=== PATIENT | female | born 1990 | race Caucasian/White ===

== ENCOUNTER 2021-03-01 05:14 | Emergency (ER) | payer BC ==
[2021-03-01] MEDS ORDERED: Mag-Al Plus 1200 MG/1200 MG/120 MG/30 ML UDCUP ONE (06:36)
[2021-03-01] MEDS ORDERED: Lidocaine Viscous Sol 2% 15 ml UD Cup ONE (06:37)
[2021-03-01 06:47] LABS: #Eosinphils 0.5 10x3/uL (0.0-0.5); #Neutrophils 10.8 10x3/uL (1.5-8.4); %Basophils 0.3 % (0.0-2.0); %Eosinophils 3.4 % (0.0-6.0); %Lymphocytes 8.1 % (18.0-47.0); %Monocytes 7.2 % (0.0-10.0); %Neutrophils 80.5 % (40.0-75.0); Hemoglobin 14.1 g/dL (12.0-15.5); Mean Corpuscular HGB CONC 33.3 g/dL (32.0-36.0); Mean Corpuscular Hemoglobin 29.8 pg (27.0-33.0); Mean Corpuscular Volume 89.4 fl (81.6-98.3); Mean Platelet Volume 11.3 fl (7.4-10.4); Platelet Count 199 10x3/uL (150-450); RBC Distribution Width 11.9 % (11.5-14.5); Red Blood Cell (RBC) Count 4.73 10x6/uL (3.90-5.03); White Blood Cell (WBC) Count 13.4 10x3/uL (3.5-10.5)
[2021-03-01 07:11] LABS: ALT (SGPT) 17 U/L (8-55); AST (SGOT) 18 U/L (5-34); Albumin 3.8 g/dL (3.5-5.0); Alkaline Phosphatase 77 U/L (40-110); Anion Gap 12 mmol/L (10-20); BUN (Urea Nitrogen) 11 mg/dL (7.0-18.7); Bilirubin, Total 0.5 mg/dL (0.2-1.2); Calc. Creatinine Clearance 0 mL/min (70-130); Calcium 9.6 mg/dL (7.8-10.44); Carbon Dioxide 25 mmol/L (22-29); Chloride 107 mmol/L (98-107); Globulin 2.8 g/dL (2.4-3.5); Glucose 94 mg/dL (70-105); Lipase 27 U/L (8-78); Potassium 3.4 mmol/L (3.5-5.1); Protein, Total 6.6 g/dL (6.0-8.3); Sodium 141 mmol/L (136-145)
== END 2021-03-01 10:20 | disposition home or self-care (01) ==
LOC: CSHERS 05:14
DX: K21.00 Gastro-esophageal reflux disease with esophagitis, without bleeding (principal); R91.8 Other nonspecific abnormal finding of lung field; Z86.16 Personal history of COVID-19
CPT/HCPCS: 71045; 80053; 83690; 84484; 85025; 85379; 93005

== ENCOUNTER 2021-07-31 14:24 | Outpatient (CLI) | payer BC | END 2021-07-31 14:25 | disposition home or self-care (01) | LOC: CSHMRI 14:24 | PROVIDERS: ATTEND Family Medicine | DX: G44.52 New daily persistent headache (NDPH) (principal); J32.9 Chronic sinusitis, unspecified | CPT/HCPCS: 70551 ==

== ENCOUNTER 2022-09-10 03:16 | Inpatient (IN) | payer BC ==
[2022-09-10] MEDS ORDERED: Methylergonovine 0.2 MG/ML VIAL IM PRN (04:30)
[2022-09-10] MEDS ORDERED: Carboprost 250 MCG/ML AMP IM PRN (04:30)
[2022-09-10] MEDS ORDERED: HYDROcodone/Acetaminophen 5/325 mg Tablet PO PRN ×3 (04:30→15:03)
[2022-09-10] MEDS ORDERED: Lidocaine 1% (PF) 30 ML VIAL SC PRN (04:30)
[2022-09-10] MEDS ORDERED: NS w/ Oxytocin 30 units 500 ML IV SCH ×2 (04:30→12:00)
[2022-09-10] MEDS ORDERED: NS w/ Oxytocin 30 units 500 ML IVPB SCH (04:30)
[2022-09-10] MEDS ORDERED: Ibuprofen 800 MG TAB PO PRN (04:30)
[2022-09-10] MEDS ORDERED: Misoprostol 200 MCG TAB RC PRN (04:30)
[2022-09-10] MEDS ORDERED: Diphenoxylate HCl/Atropine Tablet PO PRN (04:30)
[2022-09-10] MEDS ORDERED: Acetaminophen 500 MG TAB PO PRN (04:45)
[2022-09-10] MEDS ORDERED: Butorphanol Tartrate 1 MG/ML VIAL SLOW IVP PRN (04:45)
[2022-09-10] MEDS ORDERED: Zolpidem Tartrate 5 MG TAB PO PRN (04:45)
[2022-09-10] MEDS ORDERED: Promethazine HCl 25 MG/ML VIAL IM PRN ×2 (04:45→06:29)
[2022-09-10] MEDS ORDERED: hydrALAZINE 20 MG/ML VIAL SLOW IVP PRN ×2 (04:45→11:59)
[2022-09-10] MEDS ORDERED: Ondansetron PF 4 MG/2 ML Vial IVP PRN ×3 (04:45→11:59)
[2022-09-10 05:24] VITALS: BMI 26.6
[2022-09-10] MEDS ORDERED: Fentanyl 2 mcg/Bup 0.1% Cadd 100 ML ONE (05:30)
[2022-09-10 05:33] LABS: Hemoglobin 11.8 g/dL (12.0-15.5); Mean Corpuscular HGB CONC 34.1 g/dL (32.0-36.0); Mean Corpuscular Hemoglobin 28.9 pg (27.0-33.0); Mean Corpuscular Volume 84.6 fl (81.6-98.3); Mean Platelet Volume 11.6 fl (7.4-10.4); Platelet Count 247 10x3/uL (150-450); RBC Distribution Width 12.2 % (11.5-14.5); Red Blood Cell (RBC) Count 4.09 10x6/uL (3.90-5.03); White Blood Cell (WBC) Count 20.5 10x3/uL (3.5-10.5)
[2022-09-10 06:00] LABS: HBSAg Index 0.16 S/CO (0-0.99); Hep B Surf Ag Non-Reactive S/CO (NonReactive)
[2022-09-10 06:01] LABS: Syphilis Antibody Nonreactive (Nonreactive); Syphilis Antibody Index 0.04 S/CO (<1.00 Non-Reactive)
[2022-09-10] MEDS ORDERED: Acetaminophen 325 MG TAB PO PRN (06:29)
[2022-09-10] MEDS ORDERED: diphenhydrAMINE 50 MG/ML VIAL IVP PRN (06:29)
[2022-09-10] MEDS ORDERED: ePHEDrine Sulfate 50 MG/10 ML VIAL SLOW IVP PRN (06:29)
[2022-09-10] MEDS ORDERED: Naloxone HCl 0.4 mg/ml Vial IVP PRN ×2 (06:29)
[2022-09-10] MEDS ORDERED: Moisturizing Cream (Eucerin) 113 GM JAR TOP PRN (06:29)
[2022-09-10] MEDS ORDERED: Lactated Ringer's 500 ML IV PRN (06:29)
[2022-09-10] MEDS ORDERED: Communication Order-Pharmacy FS SCH (06:30)
[2022-09-10] MEDS ORDERED: Fentanyl 2 mcg/Bupivacaine 0.1% Cassette 100 ML EPIDURAL SCH (06:30)
[2022-09-10] MEDS: Lactated Ringer's 1,000 ML IV SCH ×2 (07:10→15:19)
[2022-09-10] MEDS ORDERED: Bupivacaine 0.25% HCL 30 ML VIAL ONE (08:00)
[2022-09-10] MEDS ORDERED: Fentanyl 100 MCG/2 ML VIAL ONE (08:43)
[2022-09-10 09:05] LABS: HIV (1/2) Antibody/Antigen Non-Reactive (NonReactive); HIV 1/2 INDEX 0.08 S/CO (<1.00)
[2022-09-10] MEDS ORDERED: Preparation H Ointment 28 GM TUBE PR PRN (11:59)
[2022-09-10] MEDS ORDERED: Milk Of Magnesia 30 ML UDCUP PO PRN (11:59)
[2022-09-10] MEDS ORDERED: Bisacodyl 10 MG SUPP PR PRN (11:59)
[2022-09-10] MEDS ORDERED: Boostrix 0.5 ML (Tdap) VIAL (>/=7 yrs of age) IM ONE (11:59)
[2022-09-10] MEDS ORDERED: Benzocaine-Menthol 82.5 ML CAN TOP PRN (11:59)
[2022-09-10] MEDS ORDERED: Misoprostol 200 MCG TAB VAG PRN (11:59)
[2022-09-10] MEDS ORDERED: diphenhydrAMINE 25 MG CAP PO PRN (11:59)
[2022-09-10] MEDS ORDERED: Lanolin Ointment 7 GM TUBE TOP PRN (11:59)
[2022-09-10] MEDS ORDERED: Witch Hazel-Glycerin 1 EACH JAR TOP PRN (12:01)
[2022-09-10] MEDS ORDERED: Erythromycin Base 0.5% Oint 1 GM TUBE ONE (12:49)
[2022-09-10] MEDS ORDERED: Phytonadione Neonatal 1 MG/0.5 ML AMP ONE (12:49)
[2022-09-10] MEDS: Ibuprofen 800 MG TAB PO SCH ×2 (15:46→22:43)
[2022-09-10] MEDS: Ferrous Sulfate 325 MG TAB PO SCH (16:57)
[2022-09-10] MEDS: HYDROcodone/Acetaminophen 5/325 mg Tablet PO PRN (20:20)
[2022-09-10] MEDS: Docusate 100 MG CAP PO SCH (20:20)
[2022-09-11] MEDS: HYDROcodone/Acetaminophen 5/325 mg Tablet PO PRN ×2 (02:52→14:58)
[2022-09-11 04:56] LABS: Hemoglobin 9.7 g/dL (12.0-15.5); Mean Corpuscular HGB CONC 32.8 g/dL (32.0-36.0); Mean Corpuscular Hemoglobin 28.6 pg (27.0-33.0); Mean Corpuscular Volume 87.3 fl (81.6-98.3); Mean Platelet Volume 10.9 fl (7.4-10.4); Platelet Count 238 10x3/uL (150-450); RBC Distribution Width 12.2 % (11.5-14.5); Red Blood Cell (RBC) Count 3.39 10x6/uL (3.90-5.03); White Blood Cell (WBC) Count 19.9 10x3/uL (3.5-10.5)
[2022-09-11] MEDS: Ibuprofen 800 MG TAB PO SCH ×2 (06:19→14:51)
[2022-09-11 08:39] VITALS: BP 109/65; TEMP 97.9
[2022-09-11] MEDS ORDERED: Prenatal Vitamin 1 TAB PO SCH (09:00)
[2022-09-11] MEDS: Ferrous Sulfate 325 MG TAB PO SCH (09:54)
[2022-09-11] MEDS: Docusate 100 MG CAP PO SCH (09:56)
== END 2022-09-11 15:02 | disposition home or self-care (01) | DRG 807 ==
LOC: CSHLD/OP 03:16 → CSHLD 04:30 → CSHPP 14:35
PROVIDERS: ADMIT Obstetrics & Gynecology; ATTEND Obstetrics & Gynecology
PROC: 10E0XZZ Delivery of Products of Conception, External Approach (ICD-10-PCS; principal; 2022-09-10)
PROC: 3E0334Z Introduction of Serum, Toxoid and Vaccine into Peripheral Vein, Percutaneous Approach (ICD-10-PCS; 2022-09-10)
PROC: 10907ZC Drainage of Amniotic Fluid, Therapeutic from Products of Conception, Via Natural or Artificial Opening (ICD-10-PCS; 2022-09-10)
DX: O26.893 Other specified pregnancy related conditions, third trimester (principal); Z37.0 Single live birth; Z67.21 Type B blood, Rh negative; Z3A.39 39 weeks gestation of pregnancy; Z79.82 Long term (current) use of aspirin
CPT/HCPCS: 36415; 51702; 85027; 85461; 86780; 86850; 86870; 86900; 86901; 87340; 87389; 90384; 96372; 99285; S0020

== ENCOUNTER 2022-09-20 11:21 | Emergency (ER) | payer BC ==
[2022-09-20 12:03] LABS: Bilirubin Neg (Negative); Blood, Urine 250 (Negative); Clarity Clear (Clear); Glucose, Urine (Dipstick) Normal (Negative); Ketone, Urine Negative (Negative); Leukocyte 100 (Negative); Nitrite Negative (Negative); Protein, Urine (Dipstick) Negative (Neg-Trace); Specific Gravity, Urine 1.015 (1.005-1.030); Urobilinogen Normal mg/dL (Less than 2)
[2022-09-20 12:07] LABS: #Eosinphils 0.4 10x3/uL (0.0-0.5); #Monocytes 0.6 10x3/uL (0.0-1.1); #Neutrophils 4.2 10x3/uL (1.5-8.4); %Basophils 0.5 % (0.0-2.0); %Eosinophils 5.1 % (0.0-6.0); %Lymphocytes 34.1 % (18.0-47.0); %Monocytes 6.9 % (0.0-10.0); Hemoglobin 13.2 g/dL (12.0-15.5); Mean Corpuscular HGB CONC 32.1 g/dL (32.0-36.0); Mean Corpuscular Hemoglobin 28.1 pg (27.0-33.0); Mean Corpuscular Volume 87.6 fl (81.6-98.3); Mean Platelet Volume 10.1 fl (7.4-10.4); Platelet Count 351 10x3/uL (150-450); RBC Distribution Width 12.3 % (11.5-14.5); Red Blood Cell (RBC) Count 4.69 10x6/uL (3.90-5.03)
[2022-09-20 12:15] LABS: Bacteria/HPF 1+ HPF (None Seen); Transitional Epithelial 0-3 HPF (None Seen)
[2022-09-20 12:21] LABS: ALT (SGPT) 21 U/L (8-55); AST (SGOT) 12 U/L (5-34); Alkaline Phosphatase 98 U/L (40-110); Anion Gap 12 mmol/L (10-20); BUN (Urea Nitrogen) 7 mg/dL (7.0-18.7); Bilirubin, Total 0.4 mg/dL (0.2-1.2); Calc. Creatinine Clearance 0 mL/min (70-130); Calcium 8.9 mg/dL (7.8-10.44); Carbon Dioxide 25 mmol/L (22-29); Chloride 108 mmol/L (98-107); Estimated GFR 103; Globulin 3.1 g/dL (2.4-3.5); Glucose 84 mg/dL (70-105); Potassium 3.4 mmol/L (3.5-5.1); Protein, Total 7.1 g/dL (6.0-8.3); Sodium 142 mmol/L (136-145)
[2022-09-20] MEDS ORDERED: Metoclopramide HCl 10 MG/2 ML VIAL ONE (12:24)
[2022-09-20] MEDS ORDERED: diphenhydrAMINE 50 MG/ML VIAL ONE (12:24)
[2022-09-20] MEDS ORDERED: Ketorolac Tromethamine 30 MG/ML VIAL ONE (12:24)
[2022-09-20] MEDS ORDERED: Magnesium 2 GM/50 ML BAG (IN WATER) ONE (12:25)
== END 2022-09-20 13:46 | disposition home or self-care (01) ==
LOC: CSHERS 11:21
DX: R51.9 Headache, unspecified (principal); N39.0 Urinary tract infection, site not specified
CPT/HCPCS: 70450; 80053; 81003; 81015; 85025; 96365; 96375; J1200; J1885; J2765; J3475